=== PATIENT | male | born 1995 | race Caucasian/White ===

== ENCOUNTER 2022-06-02 15:43 | Emergency (ER) | payer MEDICAID ==
[~2022-06-02] VITALS: Ht 172.7 cm; Wt 79.4 kg
[2022-06-02 16:10] VITALS: BP_SYST 122
--- NOTE | 2022-06-02 16:10 | NUR ---
Patient triaged and placed in waiting room. VSS and patient appears in no acute distress at this time. Accompanied by SELF, awaiting available bed, and MD notified of need for MSE.
[2022-06-02] MEDS ORDERED: DIPH25CA83 PO (19:05)
[2022-06-02] MEDS ORDERED: PRED20TA PO (19:05)
[2022-06-02] MEDS ORDERED: HYDC2.5% TP (19:05)
[2022-06-02] MEDS ORDERED: PERM60CR18 TP (19:10)
[2022-06-02] MEDS ORDERED: DIPHENHYDRAMINE INJ 50 MG/ML VIAL IM ONE (19:15)
[2022-06-02 19:40] VITALS: BP_SYST 127
--- NOTE | 2022-06-02 19:40 | NUR ---
DC PT BACK TO HIS REHAB/FACILITY. PER PT HE ALREADY CALLED FOR HIS PICKED UP AND PER PT IT WILL ARRIVE ANY TIME. DC INSTRUCTION AND PRESCRIPTION WERE GIVEN TO PT. ALL DOCUMENTS WERE GIVEN TO PT AND HE VERBALIZED UNDERSTANDING
== END 2022-06-02 19:52 | disposition home or self-care (01) ==
LOC: SED 15:43
DX: L50.9 Urticaria, unspecified (principal); R21 Rash and other nonspecific skin eruption; Z88.0 Allergy status to penicillin; Z88.1 Allergy status to other antibiotic agents; Z79.899 Other long term (current) drug therapy
CPT/HCPCS: 99283; 96372; J1200